=== PATIENT | male | born 1975 | race African-American/Black ===

== ENCOUNTER 2018-11-14 22:56 | Emergency (ER) | payer SELFPAY ==
[2018-11-15] MEDS ORDERED: KETOROLAC TROMETHAMINE 60 MG/2 ML SDV IM ONE (02:10)
[2018-11-15] MEDS ORDERED: PENICILLIN V POTASSIUM 500 MG TABLET PO ONE (02:10)
--- NOTE | 2018-11-15 02:13 | ER Document Report ---
ED General - General Chief Complaint: Mouth Problem Stated Complaint: MOUTH PAIN Time Seen by Provider: 11/15/18 01:58 Primary Care Provider: [facility] [NO LOCAL MD] - Follow up in 3-5 days Mode of Arrival: Ambulatory Information source: Patient Notes: 43-year-old male presents with several months of mouth pain. Patient states that he has had intermittent pain of his gums, roof of his mouth, teeth. He states that the pain migrates and is worsened with extreme cold or extreme hot food. Patient has never seen a dentist. Denies fever, chills, sore throat, difficulty swallowing, ear pain, specific tooth pain. TRAVEL OUTSIDE OF THE [place] IN LAST 30 DAYS: No - HPI Onset: Other Onset/Duration: Persistent Quality of pain: Achy, Burning Severity: Mild Associated symptoms: denies: Chills, Nonproductive cough, Earache, Fever, Headache, Nausea Exacerbated by: Food Relieved by: Denies Similar symptoms previously: Yes Recently seen / treated by doctor: No - Related Data Allergies/Adverse Reactions: No Known Allergies Allergy (Unverified 11/14/18 22:58) Past Medical History - General Information source: Patient, [facility] Records - Social History Smoking Status: Current Every Day Smoker Cigarette use (# per day): Yes - 10 Smoking Education Provided: Yes - Smoking cessation counseling was provided for 4 minutes at the bedside Frequency of alcohol use: None Drug Abuse: None Lives with: Family Family History: Reviewed & Not Pertinent - Medical History Medical History: Negative - Immunizations Immunizations up to date: Yes Hx Diphtheria, Pertussis, Tetanus Vaccination: Yes Review of Systems - Review of Systems Notes: REVIEW OF SYSTEMS: CONSTITUTIONAL : Denies fever, chills, or sweats. Denies recent illness. Denies weight loss, recent hospitalizations. EENT: Denies visual changes, eye pain. Denies sore throat, oral lesions, difficulty swallowing. CARDIOVASCULAR: Denies chest pain. Denies palpitations. Denies lower extremity edema. RESPIRATORY: Denies cough. Denies shortness of breath, wheezing. GASTROINTESTINAL: Denies abdominal pain or distention. Denies nausea, vomiting, or diarrhea. Denies blood in vomitus, stools, or per rectum. Denies black, tarry stools. Denies constipation. GENITOURINARY: Denies difficulty urinating, painful urination, frequency, blood in urine, testicular pain or penile discharge. MUSCULOSKELETAL: Denies back or neck pain or stiffness. Denies joint pain or swelling. SKIN: Denies rash, lesions or sores. HEMATOLOGIC : Denies easy bruising or bleeding. LYMPHATIC: Denies swollen glands. NEUROLOGICAL: Denies confusion or altered mental status. Denies loss of consciousness. Denies dizziness or lightheadedness. Denies headache. Denies weakness or paralysis. Denies problems difficulty with ambulation, slurred speech. Denies sensory loss, numbness, or tingling. Denies seizures. PSYCHIATRIC: Denies anxiety or stress. Denies depression, suicidal ideation, or Physical Exam - Vital signs Vitals: Temp Pulse Resp BP Pulse Ox 98.3 F 58 L 16 151/96 H 98 11/15/18 00:27 11/15/18 00:27 11/15/18 00:27 11/15/18 00:27 11/15/18 00:27 - Notes Notes: PHYSICAL EXAMINATION: GENERAL: Well-appearing, well-nourished and in no acute distress. HEAD: Atraumatic, normocephalic. EYES: Pupils equal round and reactive to light, extraocular movements intact, sclera anicteric, conjunctiva are normal. ENT: Nares patent, oropharynx clear without exudates. Moist mucous membranes. Multiple dental caries. No dental abscess. No tooth tenderness with palpation, no sublingual edema, no trismus. NECK: Normal range of motion, supple without lymphadenopathy LUNGS: Breath sounds clear to auscultation bilaterally and equal. No wheezes rales or rhonchi. HEART: Regular rate and rhythm without murmurs ABDOMEN: Soft, nontender, nondistended abdomen. No guarding, no rebound. No masses appreciated. Musculoskeletal: Normal range of motion, no pitting or edema. No cyanosis. NEUROLOGICAL: Cranial nerves grossly intact. Normal speech, normal gait. Normal sensory, motor exams PSYCH: Normal mood, normal affect. SKIN: Warm, Dry, normal turgor, no rashes or lesions noted. Course - Re-evaluation Re-evalutation: Temp Pulse Resp BP Pulse Ox 97.3 F 56 L 16 145/89 H 98 11/15/18 02:33 11/15/18 02:33 11/15/18 02:33 11/15/18 02:33 11/15/18 02:33 43-year-old male presents with several months of mouth pain which she describes as burning, intermittent and worse with extreme cold or hot foods. Patient has no obvious dental abscess, focal dental tenderness. He does have multiple dental caries. Patient was started on penicillin and given Naprosyn for pain. Dental follow-up highly recommended. Patient discharged home in stable condition. 11/15/18 02:59 - Vital Signs Vital signs: Temp Pulse Resp BP Pulse Ox 97.3 F 56 L 16 145/89 H 98 11/15/18 02:33 11/15/18 02:33 11/15/18 02:33 11/15/18 02:33 11/15/18 02:33 Discharge - Discharge Clinical Impression: Oral pain of unknown etiology Condition: Good Disposition: HOME, SELF-CARE Instructions: Dental Infection or Abscess ([facility]) Additional Instructions: Follow up with your [id number] hours for further care or return to the ED IMMEDIATELY if symptoms worsen or you have any concerns. If you cannot afford to follow up with your primary care physician a list of low cost clinics have been provided at the end of your discharge papers as well. Most prescribed medications have multiple side effects. The safest thing to do is when filling your prescription speak to your pharmacist regarding possible interactions with your normal home medications and over the counter medications such as Ibuprofen, Tylenol, Benadryl. If you experience any symptoms that cause you discomfort or concern you should discontinue the medication immediately and return to the emergency room or call your primary care physician. Please call the [facility]. clinic to learn about their dental services. There are some dental clinics at reduced rate. However are not in town and require travel. In [place]: [facility]. Phone: In [place]: 1.[facility] (60 miles away) [address] [facility] [phone] [facility] For appointments, call on Mondays between the hours of 9 AM and noon. 2. [facility] (60 miles) [address] [facility] [place] [phone] extension [phone] In [place]: [facility] (42 miles away) [address] [place] [address] In [place]: [facility] (53 miles away) [address] [place] [address] In [facility] (173 miles away) [address] [place] [address] [facility].net Prescriptions: Naproxen [Naprosyn] 500 mg PO Q12H #20 tablet Penicillin V Potassium [Penicillin Vk 500 mg Tablet] 500 mg PO BID #20 tablet Forms: Elevated Blood Pressure Referrals: [facility] [NO LOCAL MD] - Follow up in 3-5 days
[2018-11-15 02:36] VITALS: BP 145/89
== END 2018-11-15 02:45 | disposition home or self-care (01) ==
LOC: ER 22:56
DX: K02.9 Dental caries, unspecified (principal); K08.89 Other specified disorders of teeth and supporting structures; K13.79 Other lesions of oral mucosa; F17.210 Nicotine dependence, cigarettes, uncomplicated; Z71.6 Tobacco abuse counseling
CPT/HCPCS: 99406; 99282; 96372; J1885

== ENCOUNTER 2018-12-07 00:36 | Emergency (ER) | payer SELFPAY ==
[2018-12-07] MEDS ORDERED: ONDANSETRON HCL INJ/PF 4 MG/2 ML SDV IV ONE (04:09)
[2018-12-07] MEDS ORDERED: KETOROLAC TROMETHAMINE INJ/PF 30 MG/1 ML SDV IV ONE (04:09)
[2018-12-07] MEDS ORDERED: NORMAL SALINE 1000 ML 1,000 ML IV ONE (04:09)
[2018-12-07 05:04] LABS: APPEARANCE,URINE CLEAR; BILIRUBIN,URINE NEGATIVE (NEGATIVE); COLOR,URINE YELLOW; GLUCOSE, URINE NEGATIVE (NEGATIVE); KETONES,URINE 20 mg/dL (NEGATIVE); LEUKOCYTE ESTERASE,URINE NEGATIVE (NEGATIVE); NITRITE,URINE NEGATIVE (NEGATIVE); PROTEIN,URINE NEGATIVE (NEGATIVE); URINE SPECIFIC GRAVITY 1.017; UROBILINOGEN,URINE NEGATIVE mg/dL (<2.0)
[2018-12-07 05:19] LABS: ANION GAP 8 (5-19); BLOOD UREA NITROGEN 16 mg/dL (7-20); CALCIUM 9.3 mg/dL (8.4-10.2); CARBON DIOXIDE 29 mmol/L (22-30); CHLORIDE 101 mmol/L (98-107); GLUCOSE 92 mg/dL (75-110); POTASSIUM 4.7 mmol/L (3.6-5.0); SODIUM 138.1 mmol/L (137-145)
--- NOTE | 2018-12-07 05:45 | ER Document Report ---
ED General - General Chief Complaint: Low Back Pain Stated Complaint: BACK PAIN Time Seen by Provider: 12/07/18 03:43 TRAVEL OUTSIDE OF THE [place] IN LAST 30 DAYS: No - HPI Notes: Patient is a 43-year-old male who presents to the emergency department via EMS that was brought to triage for the chief complaint of left lower back pain. Patient states that starting 2 days ago he was lifting shingles when he felt a discomfort in his left lower back. Patient states at that time the pain was not that bad so he kept working. 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 Patient does deny any numbness or tingling to his lower legs. Patient states that movement makes the left lower back pain worse. Patient denies loss of bowel or bladder. Patient denies numbness or tingling to his rectal area or groin area. States the pain is slightly improved if he does not move. 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 Patient states he does drink a lot of water but did have some cramping in his muscles. - Related Data Allergies/Adverse Reactions: No Known Allergies Allergy (Unverified 11/14/18 22:58) Past Medical History - General Information source: Patient - Social History Smoking Status: Never Smoker Cigarette use (# per day): No Chew tobacco use (# tins/day): No Family History: Reviewed & Not Pertinent Patient has suicidal ideation: No Patient has homicidal ideation: No Renal/ Medical History: Denies: Hx Peritoneal Dialysis - Immunizations Immunizations up to date: Yes Hx Diphtheria, Pertussis, Tetanus Vaccination: Yes Review of Systems - Review of Systems Constitutional: No symptoms reported EENT: No symptoms reported Cardiovascular: No symptoms reported Respiratory: No symptoms reported Gastrointestinal: No symptoms reported Genitourinary: No symptoms reported Male Genitourinary: No symptoms reported Musculoskeletal: See HPI Skin: No symptoms reported Hematologic/Lymphatic: No symptoms reported Neurological/Psychological: No symptoms reported Physical Exam - Vital signs Vitals: Temp Pulse Resp BP Pulse Ox 98.4 F 65 19 136/64 H 100 12/07/18 00:54 12/07/18 00:54 12/07/18 00:54 12/07/18 00:54 12/07/18 00:54 Interpretation: Normal - Notes Notes: GENERAL: Well-appearing, well-nourished and in no acute distress. HEAD: Atraumatic, normocephalic. EYES: Pupils equal round and reactive to light, extraocular movements intact, sclera anicteric, conjunctiva are normal. ENT: Moist mucous membranes. NECK: Normal range of motion, supple without lymphadenopathy or JVD. LUNGS: Breath sounds clear to auscultation bilaterally and equal. No wheezes rales or rhonchi. HEART: Regular rate and rhythm without murmurs, rubs or gallops. ABDOMEN: Soft, nontender, normoactive bowel sounds. No guarding, no rebound. No masses appreciated. EXTREMITIES: Normal range of motion, no pitting or edema. No clubbing or cyanosis. Left sided para lumbar tenderness. Negative straight leg raise. + strong bilateral pedal pulses. NEUROLOGICAL: Cranial nerves II through XII grossly intact. Normal speech, normal gait. PSYCH: Normal mood, normal affect. SKIN: Warm, Dry, normal turgor, no rashes or lesions noted. Course - Re-evaluation Re-evalutation: 12/07/18 Upon initial assessment patient is resting on stretcher. Patient does complain of lower back pain worse with movement. Patient does appear somewhat uncomfortable. 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 Patient does deny nausea or vomiting. Will obtain basic lab work, give IV fluids, and Toradol for pain. Patient's creatinine slightly elevated and patient did have ketones in his urine, consistent with a mild dehydration. After receiving fluids and pain medication patient reports that he feels much better. Patient reports that his left lower back pain is now a 2 out of 5. Patient states that he feels comfortable going home. Will prescribe patient naproxen which is an anti- inflammatory. Patient verbalizes understanding. - Vital Signs Vital signs: Temp Pulse Resp BP Pulse Ox 98.4 F 65 19 136/64 H 100 12/07/18 00:54 12/07/18 00:54 12/07/18 00:54 12/07/18 00:54 12/07/18 00:54 - Laboratory Result Diagrams: 12/07/18 04:42 Laboratory results interpreted by me: 12/07/18 12/07/18 04:42 04:42 Creatinine 1.31 H Urine Ketones 20 H Discharge - Discharge Clinical Impression: Dehydration Low back strain Qualifiers: Encounter type: initial encounter Qualified Code(s): S39.012A - Strain of muscle, fascia and tendon of lower back, initial encounter Condition: Stable Disposition: HOME, SELF-CARE Instructions: Low Back Pain ([facility]), Muscle Strain ([facility]), Warm Packs ([facility]) Additional Instructions: Today you were seen in the emergency department for low back pain and mild dehydration. After receiving Toradol which is an anti-inflammatory you reported that your pain had significantly improved. I am prescribing you naproxen which is an anti-inflammatory pain medication that you can take at home. This medication can upset your stomach so please take with food. You are also being prescribed Robaxin. Robaxin as a muscle relaxer. Take this as needed for pain. Your urine and blood work showed that you did have mild dehydration, we did give you IV fluids for this. Please continue to push fluids. Please return to the emergency department if you have any worsening of symptoms to include new onset of numbness or tingling to her lower extremities, severe pain, inability to urinate, loss of bowel or bladder, numbness or tingling around the groin or rectal area, or any other worsening signs or symptoms. Anti-Inflammatory Medication You have received a prescription for an anti inflammatory agent. This is an excellent, safe drug for pain control. In addition, it has potent antiinflammatory effects which are beneficial, especially in the treatment of i njuries, arthritis, or tendonitis. It's best to take this medicine with food. Persons with ulcer disease or allergy to aspirin should notify their physician of this before taking this drug. Take the medication exactly as prescribed. Don't take additional doses unless instructed to do so by your doctor. If you develop wheezing, shortness of breath, hives, faintness, stomach pain, vomiting, or dark black stools, return for re-evaluation at once. Muscle Relaxers Muscle relaxing medications are usually prescribed for acute muscle spasm or injury to the neck and back. They are often combined with antiinflammatory pain medication for increased relief. You may stop the muscle relaxer when the pain and stiffness have improved. Start the medication again if spasms recur. Muscle relaxers may cause drowsiness, especially with the first dose. Do not operate machinery or drive while under the effects of the medication. Most muscle relaxers last up to 24 hours. Do not combine the medication with alcohol. Muscle Strain You have strained a muscle -- torn the fibers within the muscle. This often occurs with strenuous exertion, or during an injury that suddenly stretches the muscle. The seriousness of a strain varies. Some strains heal within days, others cause problems for months. X-rays cannot show a muscle strain. X-rays are taken only if symptoms suggest that a fracture could be present. The usual treatment of a muscle strain is rest and ice packs. Sometimes, a sling, splint, or crutches may be necessary to rest the muscle. The muscle can be used again once pain subsides. Severe strains require a special exercise and stretching program to prevent permanent stiffness and disability. Your doctor will advise you if this will be necessary. Call the doctor immediately if pain or swelling becomes severe, or if numbness or discoloration develop. Prescriptions: Methocarbamol [Robaxin 750 mg Tablet] 750 mg PO Q6 PRN #20 tablet PRN Reason: Naproxen 500 mg PO BID PRN #14 tablet PRN Reason:
[2018-12-07 06:24] VITALS: BP 128/62
== END 2018-12-07 06:24 | disposition home or self-care (01) ==
LOC: ER 00:36
DX: S39.012A Strain of muscle, fascia and tendon of lower back, initial encounter (principal); X58.XXXA Exposure to other specified factors, initial encounter; E86.0 Dehydration; R25.2 Cramp and spasm
CPT/HCPCS: 99283; 96361; 96374; 96375; 36415; 80048; 81001; J1885; J2405; J7030